=== PATIENT | female | born 1985 | race Hispanic/Latino ===

== ENCOUNTER 2017-06-19 19:12 | Day surgery (SDC) | payer OTHER ==
[2017-06-19 19:47] VITALS: BMI 39.9
[2017-06-19] MEDS ORDERED: Promethazine HCl 25 MG/ML VIAL IM/IV PRN (20:01)
--- NOTE | 2017-06-19 22:17 | PRG ---
LABOR AND DELIVERY FOLLOWUP DATE OF SERVICE: 06/19/2017 TIME OF EVALUATION: Roughly 21:50. LOCATION: Labor and Delivery. SUBJECTIVE: In brief, this is a patient who has been observed for 2 hours once again this evening a fter being observed earlier today. Her cervix remains unchanged at about 3 cm. I evaluated the pat ient at bedside and asked if her contractions felt the same, better or worse. She states that her c ontractions are now decreased. On tocodynamometer, her contractions are very few and irregular, abo ut 1 every 10-15 minutes. heart tracing is still reactive and category 1 with a normal baseli ne of the 130s to 140s. As her cervix has remained unchanged and that she feels clinically better a fter a dose of Stadol and Phenergan, the plan is to discharge the patient home with outpatient bharat mayers. She was instructed on latent labor versus active labor and questions were answered. The patie nt agrees to go home for now as she clinically feels better.
--- NOTE | 2017-06-19 23:57 | PRG ---
DATE OF SERVICE: 06/19/2017 TIME OF EVALUATION: 1944 hours. TIME OF DICTATION: 1955 hours. LOCATION: [facility] bed #3. In brief, this is a patient that we had observed for latent labor earlier today , and she was discharged home with a diagnosis of latent labor at about 2-3 cm. There was no evidence of vaginal bleeding or ruptured membranes at that time. Rather than redictating a complete review, please turn to that earlier progress note, which was done at approximately 4-5 hours ago. The patient has now returned to Labor and Delivery, stating increase contraction frequency. REVIEW OF SYSTEMS: A complete review of systems was checked and is otherwise negative unless specified in the HPI. PHYSICAL EXAMINATION: She is afebrile and normotensive. heart tones are in the 140s with Doppler. Cervical exam is 3 cm dilation about 50% effacement, -2 station. This is not overtly different from her previous exam earlier today. On monitor, heart tones are in the 140s and reactive. Contractions are about every 10-12 minutes on tocodynamometer. ASSESSMENT: This is a patient with continued contractions, but still in the latent phase. PLAN: 1. Continue observation for now. 2. I have discussed with her that rather than diagnosing latent labor, now we will watch for two hours and reassess at that time. 3. There is still no cervical progress, we may discharge the patient home with expectant management. 4. If she makes cervical change or has evidence of a worrisome heart rate tracing, we will admit the patient. 5. If the patient ruptures, we will admit. 6. I offered the patient therapeutic rest with Stadol and Phenergan and we will proceed with that medication. 7. No evidence of true labor at this time, but we will continue with observation. JENA
== END 2017-06-19 22:06 | disposition home or self-care (01) ==
LOC: L&D/OP 19:12
PROVIDERS: ATTEND Obstetrics & Gynecology
DX: O47.1 False labor at or after 37 completed weeks of gestation (principal); O98.319 Other infections with a predominantly sexual mode of transmission complicating pregnancy, unspecified trimester; B00.9 Herpesviral infection, unspecified; Z3A.39 39 weeks gestation of pregnancy; Z98.1 Arthrodesis status; Z79.899 Other long term (current) drug therapy
CPT/HCPCS: J0595; J2550

== ENCOUNTER → 2017-06-19 | Day surgery (SDC) | payer OTHER ==
[~2017-06-19] MED LIST: FLU VACC QS2017-18 36 mo. & older 0.5 ML SYRINGE IM ONE
--- NOTE | 2017-06-19 15:49 | PRG ---
DATE OF SERVICE: 06/19/2017 LABOR AND DELIVERY FOLLOWUP In brief, this is a patient who is a patient who has been observed for 2 hours in labor and delivery , her contractions are about every 3-5 minutes, but they have spaced out a little bit with some hydr ation. There is no evidence of rupture of membranes or vaginal bleeding. Her vital signs are stabl e and she is afebrile. heart tones are category 1. Her cervical exam after 2 hours of rechec k was basically unchanged at 2-3 cm. The diagnosis has been made of latent labor. We have decided to discharge the patient home, but give her close follow up with instructions that if she ruptures h er bag of water or has increasing contraction frequency that she should return back to [facility]. There is no evidence of maternal or compromise at this time.
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
== END | disposition home or self-care (01) ==
LOC: L&D/OP 13:07
PROVIDERS: ATTEND Obstetrics & Gynecology
DX: O47.1 False labor at or after 37 completed weeks of gestation (principal); O98.313 Other infections with a predominantly sexual mode of transmission complicating pregnancy, third trimester; B00.9 Herpesviral infection, unspecified; Z3A.39 39 weeks gestation of pregnancy; Z98.1 Arthrodesis status; Z79.899 Other long term (current) drug therapy

== ENCOUNTER 2017-06-20 15:23 | Inpatient (IN) | payer OTHER ==
[2017-06-20] MEDS: Lactated Ringer's 1,000 ML IV SCH ×2 (16:26→20:10)
[2017-06-20] MEDS ORDERED: Lactated Ringer's 1,000 ML IV SCH (16:38)
[2017-06-20] MEDS ORDERED: Carboprost 250 MCG/ML AMP IM PRN (16:38)
[2017-06-20] MEDS ORDERED: LR 500 ML/Oxytocin 10 units 500 ML IV SCH (16:38)
[2017-06-20] MEDS ORDERED: Diphenoxylate HCl/Atropine Tablet PO PRN ×2 (16:38)
[2017-06-20] MEDS ORDERED: HYDROcodone/Acetaminophen 5/325 mg Tablet PO PRN ×2 (16:38)
[2017-06-20] MEDS ORDERED: Ondansetron HCl/PF 4 MG/2 ML Vial IVP PRN (16:38)
[2017-06-20] MEDS ORDERED: Promethazine HCl 25 MG/ML VIAL IM PRN (16:38)
[2017-06-20] MEDS ORDERED: Lidocaine 1% (PF) 30 ML VIAL SC PRN (16:38)
[2017-06-20] MEDS ORDERED: LR / Pitocin 40 units/1000 ml 1,000 ML IV PRN (16:38)
[2017-06-20 16:44] LABS: Hematocrit 39.5 % (36.0-47.0); Mean Platelet Volume 8.1 fL (7.4-10.4); Red Blood Cell (RBC) Count 4.12 mill/uL (4.20-5.40); White Blood Cell (WBC) Count 13.1 thou/uL (4.8-10.8)
[2017-06-20 16:46] VITALS: BMI 39.9
[2017-06-20] MEDS ORDERED: Fentanyl 4 mcg/Marc 0.1% Cadd 100 ML ONE (19:08)
[2017-06-20] MEDS ORDERED: Lidocaine 1% (PF) 30 ML VIAL ONE (22:08)
[2017-06-20] MEDS ORDERED: LR / Pitocin 40 units/1000 ml 1,000 ML ONE (22:08)
--- NOTE | 2017-06-20 23:26 | PDOC.OPDEL ---
OB Operative/Delivery Note Delivery Dr/Surgeon: Cosme Aguiar Pre-Delivery Diagnosis: active labor Procedure/Post Delivery Dx: spontaneous vaginal delivery Weeks gestation: 39 Anesthesia: epidural - Findings A Sex: male Weight: 0 oz (pend) - 5 min: 9 (1-9) - Additional Findings/Plan Placenta delivered: spontaneous Repaired Obstetrical Laceration: 1st degree (repair with 2/0 chromic) Estimated blood loss: 300 Compilations/Other Findings: controlled double nuchal cord, thin meconium, amnioinfusion Post delivery plan: routine recovery
[2017-06-21] MEDS ORDERED: Bisacodyl 10 MG SUPP PR PRN (01:42)
[2017-06-21] MEDS ORDERED: Zolpidem Tartrate 5 MG TAB PO PRN (01:42)
[2017-06-21] MEDS ORDERED: LR / Pitocin 40 units/1000 ml 1,000 ML IV SCH (01:42)
[2017-06-21] MEDS ORDERED: Ondansetron HCl/PF 4 MG/2 ML Vial IVP PRN (01:42)
[2017-06-21] MEDS ORDERED: Milk Of Magnesia 30 ML UDCUP PO PRN (01:42)
[2017-06-21] MEDS ORDERED: Adacel (T-DAP) 0.5 ML VIAL IM ONE (01:42)
[2017-06-21] MEDS ORDERED: Preparation H Ointment 28 GM TUBE PR PRN (01:42)
[2017-06-21] MEDS ORDERED: Lanolin Ointment 7 GM TUBE TOP PRN (01:42)
[2017-06-21] MEDS ORDERED: HYDROcodone/Acetaminophen 5/325 mg Tablet PO PRN (01:42)
[2017-06-21] MEDS ORDERED: Benzocaine/Menthol 20-0.5% 60 ML CAN TOP PRN (01:42)
[2017-06-21] MEDS ORDERED: diphenhydrAMINE HCl 25 MG CAP PO PRN (01:42)
[2017-06-21] MEDS: HYDROcodone/Acetaminophen 5/325 mg Tablet PO PRN ×2 (03:03→17:01)
[2017-06-21] MEDS: Ibuprofen 800 MG TAB PO SCH ×3 (06:18→21:56)
[2017-06-21] MEDS: Ferrous Sulfate 325 MG TAB PO SCH ×2 (08:09→13:56)
[2017-06-21] MEDS: Acyclovir 400 mg Tablet PO SCH ×2 (08:47→21:55)
[2017-06-21] MEDS: Prenatal Vitamin 1 TAB PO SCH (08:47)
[2017-06-21] MEDS: Docusate (Surfak) 240 MG CAP PO SCH ×2 (08:47→21:55)
[2017-06-22] MEDS: Ibuprofen 800 MG TAB PO SCH (06:03)
[2017-06-22 07:12] VITALS: BP 90/54; TEMP 97.8
[2017-06-22] MEDS: Prenatal Vitamin 1 TAB PO SCH (10:05)
[2017-06-22] MEDS: Docusate (Surfak) 240 MG CAP PO SCH (10:06)
[2017-06-22] MEDS: Ferrous Sulfate 325 MG TAB PO SCH (10:06)
[2017-06-22] MEDS: Acyclovir 400 mg Tablet PO SCH (10:09)
== END 2017-06-22 12:45 | disposition home or self-care (01) | DRG 775 ==
LOC: SDC 15:23 → L&D 15:24 → 3SE 06-21 01:20
PROVIDERS: ADMIT Obstetrics & Gynecology; ATTEND Obstetrics & Gynecology
PROC: 10E0XZZ Delivery of Products of Conception, External Approach (ICD-10-PCS; principal; 2017-06-20)
PROC: 0HQ9XZZ Repair Perineum Skin, External Approach (ICD-10-PCS; 2017-06-20)
PROC: 10907ZC Drainage of Amniotic Fluid, Therapeutic from Products of Conception, Via Natural or Artificial Opening (ICD-10-PCS; 2017-06-20)
DX: O70.0 First degree perineal laceration during delivery (principal); O69.81X0 Labor and delivery complicated by cord around neck, without compression, not applicable or unspecified; Z3A.39 39 weeks gestation of pregnancy; Z37.0 Single live birth
CPT/HCPCS: 85027; 86780; 87340; J2001; J7120

== ENCOUNTER 2019-01-12 22:49 | Inpatient (IN) | payer BC, OTHER ==
[2019-01-12] MEDS ORDERED: Ibuprofen 800 MG TAB PO PRN (23:45)
[2019-01-12] MEDS ORDERED: Lidocaine 1% (PF) 30 ML VIAL SC PRN (23:45)
[2019-01-12] MEDS ORDERED: NS / Oxytocin 40 units/1000ml 1,000 ML IV PRN (23:45)
[2019-01-12] MEDS ORDERED: Lactated Ringer's 1,000 ML IV SCH (23:45)
[2019-01-12] MEDS ORDERED: Ondansetron PF 4 MG/2 ML Vial IVP PRN (23:45)
[2019-01-13] MEDS: Lactated Ringer's 1,000 ML IV SCH ×4 (00:03→18:52)
[2019-01-13 00:34] LABS: Hemoglobin 12.1 g/dL (12.0-16.0); Mean Corpuscular HGB CONC 33.2 g/dL (32.0-36.0); Mean Corpuscular Hemoglobin 30.8 pg (27.0-31.0); Mean Corpuscular Volume 92.9 fL (78.0-98.0); Mean Platelet Volume 8.8 fL (7.4-10.4); Platelet Count 156 thou/uL (130-400); RBC Distribution Width 12.6 % (11.5-14.5); Red Blood Cell (RBC) Count 3.93 mill/uL (4.20-5.40); White Blood Cell (WBC) Count 8.9 thou/uL (4.8-10.8)
[2019-01-13 00:37] VITALS: BMI 42.0
[2019-01-13 01:01] LABS: Hep B Surf Ag Non-Reactive S/CO (NonReactive)
[2019-01-13] MEDS: NS w/ Oxytocin 10 units 500 ML IV SCH ×2 (05:49→18:53)
[2019-01-13 06:17] LABS: Syphilis Antibody Nonreactive (Nonreactive); Syphilis Antibody Index 0.07 S/CO (<1.00 Non-Reactive)
[2019-01-13] MEDS ORDERED: Fentanyl 4 mcg/Bup 0.1% Cadd 100 ML ONE ×2 (08:36→16:33)
[2019-01-13] MEDS ORDERED: Bupivacaine/Epinephrine 0.25% 30 ML VIAL ONE (11:11)
--- NOTE | 2019-01-13 19:15 | PDOC.EVN ---
Event Note - Event Note Event Note: Managing for Dr. Aguiar. Comfortable with epidural. Last RN exam= 6 cm. Fhts with variables, amnioinfusion started. FHTs are now reassuring. Pit @ 10 mu/min. UCs q 3 mins. Plan: Watch progress.
[2019-01-13] MEDS ORDERED: Misoprostol 200 MCG TAB ONE (19:33)
[2019-01-13] MEDS ORDERED: Lidocaine 1% (PF) 30 ML VIAL ONE (19:36)
--- NOTE | 2019-01-13 19:58 | PDOC.OPDEL ---
OB Operative/Delivery Note Delivery Dr/Surgeon: Polina Pre-Delivery Diagnosis: active labor Procedure/Post Delivery Dx: spontaneous vaginal delivery Weeks gestation: 39 Anesthesia: epidural - Additional Findings/Plan Placenta delivered: spontaneous Repaired Obstetrical Laceration: 1st degree Estimated blood loss: QBL pending Compilations/Other Findings: of viable female Apgars 9/9 Small 1* vaginal lac repaired with 2-0 chromic. Mom and baby doing well. To recover in L&D Post delivery plan: routine recovery
[2019-01-13] MEDS ORDERED: Milk Of Magnesia 30 ML UDCUP PO PRN (21:42)
[2019-01-13] MEDS ORDERED: Benzocaine-Menthol 82.5 ML CAN TOP PRN (21:42)
[2019-01-13] MEDS ORDERED: Zolpidem Tartrate 5 MG TAB PO PRN (21:42)
[2019-01-13] MEDS ORDERED: Acetaminophen/Codeine 30-300mg Tablet PO PRN ×2 (21:42)
[2019-01-13] MEDS ORDERED: NS / Oxytocin 40 units/1000ml 1,000 ML IV SCH (21:42)
[2019-01-13] MEDS ORDERED: Bisacodyl 10 MG SUPP PR PRN (21:42)
[2019-01-13] MEDS ORDERED: Adacel (T-DAP) 0.5 ML SYRINGE IM ONE (21:42)
[2019-01-13] MEDS: Ibuprofen 800 MG TAB PO SCH (23:27)
[2019-01-13] MEDS: Docusate Calcium (SURFAK) 240 MG CAP PO SCH (23:28)
[2019-01-14] MEDS: Ibuprofen 800 MG TAB PO SCH ×3 (05:37→21:47)
[2019-01-14] MEDS: Lactated Ringer's 1,000 ML IV SCH ×2 (08:39→08:42)
[2019-01-14] MEDS: Docusate Calcium (SURFAK) 240 MG CAP PO SCH ×2 (08:39→21:47)
[2019-01-14] MEDS: Ferrous Sulfate 325 MG TAB PO SCH ×2 (08:39→18:35)
--- NOTE | 2019-01-14 10:23 | PDOC.PP ---
Post Progress Note Post Day #: 1 PO intake tolerated: yes Flatus: yes Ambulation: yes Vital Signs (12 hours) Temp Pulse Resp BP Pulse Ox 01/14/19 08:01 100 01/14/19 07:00 97.6 F 72 20 119/64 98 01/14/19 03:35 98.9 F 61 18 115/56 L 01/14/19 00:42 98.4 F 82 18 116/56 L 01/13/19 23:25 98.1 F 78 18 127/58 L 01/13/19 22:25 98.6 F 90 18 118/56 L 96 Weight Weight 253 lb - Physical Examination General: NAD Cardiovascular: no m/r/g, RRR Respiratory: clear to auscultation bilaterally Abdominal: + bowel sounds, lochia Extremities: negative homans (B) Neurological: no gross focal deficits Psychiatric: A&Ox3, normal affect Result Diagrams: 01/13/19 00:09 Additional Labs: Post Labs Blood Type B POSITIVE 01/13/19 00:09 Hep Bs Antigen Non-Reactive S/CO (NonReactive) 01/13/19 00:08 - Assessment/Plan doing well. home tomorrow am
[2019-01-14 20:42] VITALS: TEMP 98.1
--- NOTE | 2019-01-15 06:00 | PDOC.PP ---
Post Progress Note Post Day #: 2 Subjective: Doing well, desires dsch PO intake tolerated: yes Flatus: yes Ambulation: yes Vital Signs (12 hours) Temp Pulse Resp BP Pulse Ox 01/14/19 19:51 98.1 F 72 18 122/66 97 Weight Weight 253 lb Past vitals reviewed for last 24 hours - Physical Examination General: NAD Cardiovascular: no m/r/g Respiratory: clear to auscultation bilaterally Abdominal: + bowel sounds, lochia, no distention, appropriately TTP Extremities: negative homans (B) Neurological: no gross focal deficits Psychiatric: A&Ox3, normal affect Result Diagrams: 01/13/19 00:09 Additional Labs: Post Labs Blood Type B POSITIVE 01/13/19 00:09 Hep Bs Antigen Non-Reactive S/CO (NonReactive) 01/13/19 00:08 (1) Vaginal delivery Code(s): O80 - ENCOUNTER FOR FULL-TERM UNCOMPLICATED DELIVERY Status: Acute - Assessment/Plan PPD 2, stable for dsch to home. F/U 2-4 weeks
[2019-01-15] MEDS: Lactated Ringer's 1,000 ML IV SCH (06:13)
[2019-01-15] MEDS: Ibuprofen 800 MG TAB PO SCH (06:13)
[2019-01-15] MEDS: Docusate Calcium (SURFAK) 240 MG CAP PO SCH (08:05)
[2019-01-15 08:20] VITALS: BP 108/66
== END 2019-01-15 11:30 | disposition home or self-care (01) | DRG 807 ==
LOC: L&D/OP 22:49 → L&D 01-13 18:37 → 3SE 01-13 22:24
PROVIDERS: ADMIT Obstetrics & Gynecology; ATTEND Obstetrics & Gynecology
PROC: 10E0XZZ Delivery of Products of Conception, External Approach (ICD-10-PCS; principal; 2019-01-13)
PROC: 0HQ9XZZ Repair Perineum Skin, External Approach (ICD-10-PCS; 2019-01-13)
PROC: 3E033VJ Introduction of Other Hormone into Peripheral Vein, Percutaneous Approach (ICD-10-PCS; 2019-01-13)
DX: O98.52 Other viral diseases complicating childbirth (principal); Z37.0 Single live birth; O70.0 First degree perineal laceration during delivery; Z3A.39 39 weeks gestation of pregnancy; B00.9 Herpesviral infection, unspecified; Z98.1 Arthrodesis status
CPT/HCPCS: 51702; 85027; 86780; 86850; 86900; 86901; 87340; 90715; 99285; A4353; J2001; J2590

== ENCOUNTER 2019-07-11 15:35 | Outpatient (CLI) | payer BC ==
--- NOTE | 2019-07-11 16:05 | RAD ---
XR Cerv Sp Ap Lat STANDARD History: Neck pain Comparison: None. Findings: No acute fracture or malalignment. Open-mouth odontoid view is normal. Mandible is intact as well as the upper ribs. Vertebral body heights and disc spaces are maintained. Impression: No acute fracture or malalignment. Normal exam.
== END 2019-07-11 15:36 | disposition home or self-care (01) ==
LOC: BICRAD 15:35
PROVIDERS: ATTEND Family Medicine
DX: M54.2 Cervicalgia (principal)
CPT/HCPCS: 72040

== ENCOUNTER 2020-05-18 19:10 | Emergency (ER) | payer BC, OTHER ==
[2020-05-18] MEDS ORDERED: Boostrix 0.5 ML VIAL ONE (21:42)
[2020-05-18] MEDS ORDERED: Ibuprofen 200 MG TAB ONE (21:42)
== END 2020-05-18 22:13 | disposition home or self-care (01) ==
LOC: ERS 19:10
DX: S01.01XA Laceration without foreign body of scalp, initial encounter (principal); Z23 Encounter for immunization; Z79.899 Other long term (current) drug therapy; W01.198A Fall on same level from slipping, tripping and stumbling with subsequent striking against other object, initial encounter
CPT/HCPCS: 12001; 90471; 90715

== ENCOUNTER 2021-01-01 14:30 | Outpatient (CLI) | payer BC | END 2021-01-01 14:31 | disposition home or self-care (01) | LOC: BICCT 14:30 | PROVIDERS: ATTEND Family Medicine | DX: M54.12 Radiculopathy, cervical region (principal) | CPT/HCPCS: 72125 ==

== ENCOUNTER 2021-01-02 15:26 | Outpatient (CLI) | payer BC | END 2021-01-02 15:27 | disposition home or self-care (01) | LOC: BICRAD 15:26 | PROVIDERS: ATTEND Family Medicine | DX: M54.12 Radiculopathy, cervical region (principal); M54.5 Low back pain; M25.511 Pain in right shoulder; M47.816 Spondylosis without myelopathy or radiculopathy, lumbar region | CPT/HCPCS: 72040; 72100 ==

== ENCOUNTER 2021-02-15 08:41 | Outpatient (CLI) | payer BC | END 2021-02-15 08:42 | disposition home or self-care (01) | LOC: BICMRI 08:41 | PROVIDERS: ATTEND Family Medicine | DX: M54.12 Radiculopathy, cervical region (principal) | CPT/HCPCS: 72141 ==

== ENCOUNTER 2021-07-16 16:38 | Emergency (ER) | payer BC ==
[2021-07-16 17:01] LABS: #Basophils 0.1 thou/uL (0.0-0.2); #Eosinphils 0.1 thou/uL (0.0-0.7); #Lymphocytes 1.3 thou/uL (1.20-3.40); #Monocytes 0.4 thou/uL (0.11-0.59); #Neutrophils 5.6 thou/uL (1.40-6.50); %Basophils 1.1 % (0.0-1.0); %Eosinophils 1.2 % (0.0-10.0); %Monocytes 5.5 % (0.0-10.0); %Neutrophils 74.2 % (42.0-75.0); Hemoglobin 13.8 g/dL (12.0-16.0); Mean Corpuscular HGB CONC 33.3 g/dL (32.0-36.0); Mean Corpuscular Hemoglobin 29.7 pg (27.0-31.0); Mean Corpuscular Volume 89.2 fL (78.0-98.0); Mean Platelet Volume 8.5 fL (7.4-10.4); Platelet Count 195 thou/uL (130-400); RBC Distribution Width 12.9 % (11.5-14.5); Red Blood Cell (RBC) Count 4.65 mill/uL (4.20-5.40); White Blood Cell (WBC) Count 7.5 thou/uL (4.8-10.8)
== END 2021-07-16 19:22 | disposition home or self-care (01) ==
LOC: ERS 16:38
DX: O26.851 Spotting complicating pregnancy, first trimester (principal); Z3A.01 Less than 8 weeks gestation of pregnancy
CPT/HCPCS: 36415; 76856; 84702; 85025; 86900; 86901